=== PATIENT | female | born 1955 | race Caucasian/White ===

== ENCOUNTER → 2020-01-29 09:12 | Outpatient (BNVA) | payer MEDICARE, OTHER, SELFPAY | PROVIDERS: Referring Provider Nurse Practitioner Family; Visit Provider Specialist | DX: G50.0 Trigeminal neuralgia (principal); R29.90 Unspecified symptoms and signs involving the nervous system | CPT/HCPCS: 99203 ==

== ENCOUNTER → 2021-01-28 10:47 | Outpatient (BNVA) | payer MEDICARE, OTHER, SELFPAY | PROVIDERS: PCP Nurse Practitioner Family; Visit Provider Specialist | DX: G50.0 Trigeminal neuralgia (principal) | CPT/HCPCS: 99213 ==

== ENCOUNTER 2022-01-29 13:42 | Outpatient (CLI) | payer MEDICARE, OTHER, SELFPAY ==
--- NOTE | 2022-01-29 13:45 | MR_ITS ---
WS: [id number] MRA ANGIOGRAPHY [place] HISTORY: G50.0 - Trigeminal neuralgia COMPARISON: 04/29/2015 TECHNIQUE: 3-D MR angiography is performed of the [place]. All images are reviewed including source images. Distal vertebral arteries are codominant. Normal size basilar artery. No aneurysms. Posterior cerebra l arteries are normal caliber. Persistent circulation on the RIGHT. Dominant RIGHT posterior co mmunicating artery. LEFT posterior communicating artery may be absent or hypoplastic. Similar appeara nce to the prior study. The RIGHT P1 segment is very small caliber. LEFT P1 segment is normal. Proximal RIGHT petrous portion of the ICA is smaller caliber than the LEFT and slightly irregular. Khan spect there is probably some calcified plaque. This irregularity was described also on the prior imag ing study and thought possibly related to fibromuscular dysplasia. There is no occlusion. Normal xiang karrie through the cavernous sinuses and supraclinoid carotid artery. Middle cerebral arteries are helen l. M1, M2 and M3 segments are normal. No paucity of vessels. No aneurysm. Hypoplastic RIGHT A1 segmen t but it is patent. Normal A2 segments and anterior communicating artery. Mucous retention cyst filling a moderate portion of the LEFT maxillary sinus. MR/MR angio head wo con [id number] IMPRESSION: 1. No aneurysms or high-grade occlusions. 2. Similar appearance [place] as compared to 04/29/2015. 3. Hypoplastic RIGHT A1 segment, unchanged. 4. Irregularity and mild narrowing RIGHT petrous carotid artery. May be athero sclerotic disease. For further evaluation CT angiogram could be obtained.
== END 2022-01-29 13:43 | disposition home or self-care (01) ==
PROVIDERS: PCP Nurse Practitioner Family; Visit Provider Specialist
DX: G50.0 Trigeminal neuralgia (principal)
CPT/HCPCS: 70544

== ENCOUNTER 2022-01-29 13:42 | Outpatient (CLI) | payer MEDICARE, OTHER, SELFPAY ==
--- NOTE | 2022-01-29 15:15 | MR_ITS ---
WS: [id number] MRI BRAIN WITHOUT CONTRAST HISTORY: G50.0 - Trigeminal neuralgia, no current problems. COMPARISON: 04/29/2015 TECHNIQUE: Diffusion imaging, multiplanar T1, T2 and FLAIR imaging obtained. No evidence for acute infarct or hemorrhage. Lockett-white matter differentiation is normal. Minimal atrophy and small vessel ischemic disease. No acute infarct or prior large territory infarct. Ventricles and extra-axial spaces are normal. No inferior displacement of cerebellar tonsils. The sella turcica and pituitary gland are unremarkabl e. Dural venous sinuses and [place] demonstrate no abnormality on this unenhanced studies. Paranasal sinuses: Moderate mucous retention cyst in the LEFT maxillary sinus. No expansion of the si nus cavity. Mastoid air cells are clear. Mastoid air cells: Normal. Calvarium and scalp: Intact. MR/MR head wo con* [id number] IMPRESSION: 1. No acute infarct or hemorrhage. 2. Very minimal atrophy and small vessel ischemic disease.
== END 2022-01-29 13:43 | disposition home or self-care (01) ==
PROVIDERS: PCP Nurse Practitioner Family; Visit Provider Specialist
DX: G50.0 Trigeminal neuralgia (principal)
CPT/HCPCS: 70544; 70551

== ENCOUNTER → 2022-02-04 12:55 | Outpatient (BNVA) | payer MEDICARE, OTHER, SELFPAY | PROVIDERS: PCP Nurse Practitioner Family; Visit Provider Specialist | DX: G50.0 Trigeminal neuralgia (principal); I77.3 Arterial fibromuscular dysplasia; R20.0 Anesthesia of skin; R20.2 Paresthesia of skin | CPT/HCPCS: 36415; 80053; 84443; 85025; 99214 ==

== ENCOUNTER → 2023-02-08 13:02 | Outpatient (BNVA) | payer MEDICARE, OTHER, SELFPAY | PROVIDERS: PCP Nurse Practitioner Family; Visit Provider Specialist | DX: G50.0 Trigeminal neuralgia; I77.3 Arterial fibromuscular dysplasia | CPT/HCPCS: 99213 ==

== ENCOUNTER → 2024-02-14 09:23 | Outpatient (BNVA) | payer MEDICARE, OTHER, SELFPAY | PROVIDERS: PCP Nurse Practitioner Family; Visit Provider Specialist | DX: R29.90 Unspecified symptoms and signs involving the nervous system (principal); G50.0 Trigeminal neuralgia; I77.3 Arterial fibromuscular dysplasia | CPT/HCPCS: 99213 ==

== ENCOUNTER → 2024-06-18 08:32 | Outpatient (BNVA) | payer MEDICARE, OTHER, SELFPAY | PROVIDERS: PCP Nurse Practitioner Family; Visit Provider Specialist | DX: I77.3 Arterial fibromuscular dysplasia (principal); G50.0 Trigeminal neuralgia; R29.90 Unspecified symptoms and signs involving the nervous system; R03.0 Elevated blood-pressure reading, without diagnosis of hypertension | CPT/HCPCS: 36415; 80175; 85651; 99214 ==

== ENCOUNTER 2024-06-22 12:33 | Outpatient (CLI) | payer MEDICARE, OTHER, SELFPAY ==
--- NOTE | 2024-06-22 13:00 | MR_ITS ---
WS: [id number] MRI HEAD WITH CONTRAST WITH ATTENTION TO THE INTERNAL AUDITORY CANALS TECHNIQUE: Sagittal T1, T2 axial, T2 axial flair, axial susceptibility weighted imaging, axial diffus ion weighted images, and coronal T2 images were obtained. Pre and post T1 axial and post T1 coronal i mages. ADC and FSPGR images. Post gadolinium images with attention to the internal auditory canals. A xial fiesta imaging. CLINICAL INFORMATION: G50.0 - Trigeminal neuralgia COMPARISON: MRI 01/29/2022 FINDINGS: No evidence of restricted diffusion to suggest acute ischemia. Ventricular system and basal cisterns are patent. Normal posterior fossa. Normal vascular flow voids at the skull base. No extra-axial flui d collections. No mass or mass effect. LEFT maxillary sinusitis with inspissated secretions. Mastoid air cells are well aerated. Normal posterior nasopharynx. Minimal small vessel changes. Mild parenchymal volume loss. No hemosiderin on susceptibly weighted im ages. Proximal 7th and 8th cranial nerves are normal in appearance. Normal trigeminal nerve root entr y zones. No evidence of enhancing IAC or CP angle mass. No abnormal gadolinium enhancement. Normal du ral sinuses. MR/MR iac's wo/w con* [id number] IMPRESSION: 1. No evidence of restricted diffusion to suggest acute ischemia. 2. Normal proximal 7th and 8th cranial nerves. Normal trigeminal nerve root en try zones. 3. No evidence of enhancing IAC or CP angle mass. 4. Minimal small vessel changes. Mild parenchymal volume loss. This is slightl y progressed compared to 2021. 5. LEFT maxillary sinusitis with inspissated secretions 6. No other acute findings.
[2024-06-22] MEDS: gadobenate dimeglumine 20 mL vial 10 ML IV (13:38)
--- NOTE | 2024-06-22 13:45 | MR_ITS ---
WS: [id number] MRA HEAD TECHNIQUE: Axial 3-D TOF images obtained with axial images and axial, sagittal, and coronal 2-D refor matted images. CLINICAL INFORMATION: R51.9 - Headache, unspecified COMPARISON: 2021. FINDINGS: Dominant distal LEFT vertebral artery. Basilar artery is patent. Persistent RIGHT SHIFT MECHANIC. Normal v ascularity to the SHIFT MECHANIC territory bilaterally. Both ICAs are patent at the skull base. Normal vascularity to the JACKI and MCA territories bilaterally . Small RIGHT A1 segment. Mild intracranial atheromatous disease. No proximal flow-limiting stenosis. Partial opacification LEFT sphenoid sinus with polyps or retention cysts. No significant changes since . MR/MR angio head wo con [id number] IMPRESSION: 1. Mild intracranial atheromatous disease. 2. No flow-limiting intracranial stenosis. 3. Persistent RIGHT SHIFT MECHANIC. 4. Small RIGHT A1 segment. 5. Dominant distal LEFT vertebral artery.
== END 2024-06-22 12:34 | disposition home or self-care (01) ==
LOC: RAD 12:35
PROVIDERS: PCP Nurse Practitioner Family; Visit Provider Specialist
DX: I77.3 Arterial fibromuscular dysplasia (principal); G50.0 Trigeminal neuralgia; R51.9 Headache, unspecified; I67.2 Cerebral atherosclerosis; J33.8 Other polyp of sinus
CPT/HCPCS: 70544; 70553

== ENCOUNTER → 2024-08-23 07:50 | Outpatient (BNVA) | payer MEDICARE, OTHER, SELFPAY | PROVIDERS: PCP Nurse Practitioner Family; Visit Provider Specialist | DX: I77.3 Arterial fibromuscular dysplasia (principal); G50.0 Trigeminal neuralgia; R29.90 Unspecified symptoms and signs involving the nervous system; R03.0 Elevated blood-pressure reading, without diagnosis of hypertension | CPT/HCPCS: 99214 ==